=== PATIENT | male | born 1970 | race Caucasian/White ===

== ENCOUNTER → 2019-03-09 08:44 | Outpatient (CLI) | payer OTHER, SELFPAY ==
--- NOTE | 2019-03-09 | DI.ECHO.S_ITS ---
[facility] +---------+ [facility] +---------+ : : [address] : [place] : : : : [id number] : : : : Phone: [phone] +---------+ Echocardiogram Report + + :Name: XENIA OSORIO Study Date: 03/09/2019 Height: 69 in : :[facility] Weight: 186 lb : : Gender: Male BSA: 2.0 m2 : :: 1970 Age: 48 yrs BP: 120/79 mmHg: :Reason For Study: PALPITATIONS : : Performed By: Haris Antonio : :Referring: YANA ANDERSON : + + Interpretation Summary The left ventricle is normal in size. Left ventricular systolic function is normal without focal wall motion abnormalities. The ejection fraction is estimated to be 60-65%. Diastolic parameters suggest probable normal left ventricular diastolic function and normal filling pressures. The right ventricle is normal in size and function. Pulmonary artery pressures cannot be estimated because of the lack of a measurable TR jet velocity. Both atria are normal in size. There is no significant valvular heart disease. The aortic root is normal size. Procedure: A two-dimensional transthoracic echocardiogram with color flow and Doppler was performed. The study quality was technically good. There is no prior echocardiogram noted for this patient. The patient was in normal sinus rhythm during the exam. The patient had occasional PACs during the exam. Left Ventricle: The left ventricle is normal in size. There is normal left ventricular wall thickness. Left ventricular systolic function is normal without focal wall motion abnormalities. The ejection fraction is estimated to be 60-65%. Diastolic parameters suggest probable normal left ventricular diastolic function and normal filling pressures. Right Ventricle: The right ventricle is normal in size and function. Atria: Both atria are normal in size. The interatrial septum is intact with no evidence for an atrial septal defect. Mitral Valve: The mitral valve is normal in structure and function. There is no mitral regurgitation noted. Aortic Valve: The aortic valve is trileaflet. The aortic valve opens well. No aortic regurgitation is present. Tricuspid Valve: The tricuspid valve is normal in structure and function. No tricuspid regurgitation. Pulmonary artery pressures cannot be estimated because of the lack of a measurable TR jet velocity. Pulmonic Valve: The pulmonic valve is normal in structure and function. There is trace pulmonic regurgitation. There is no significant valvular heart disease. Great Vessels: The aortic root is normal size. The dimensions of the ascending aorta are normal. The pulmonary artery is normal size. The IVC is of normal diameter and collapses greater than 50% with a sniff. This suggests a low right atrial pressure of 3 mm Hg. Pericardium/ Pleura There is no pericardial effusion. There is no pleural effusion. MMode/2D Measurements & Calculations LVIDd: 4.6 cm LVOT diam: 2.2 cm LVIDs: 3.1 cm Ao root diam: 3.1 cm FS: 32.0 % Aortic Jxn: 2.5 cm EPSS: 0.59 cm asc Aorta Diam: 2.7 cm IVSd: 0.83 cm Ao Arch Diam (Prox Trans): 2.5 cm LVPWd: 1.0 cm LV thompson. diameter/BSA (cm/m^2): 2.3 LV sys. diameter/BSA (cm/m^2): 1.6 LA dimension: 3.5 cm RA long axis: 4.5 cm LA A2 area: 19.0 cm2 RA area: 12.9 cm2 LA A4 area: 19.4 cm2 RA vol: 31.3 ml LA length (vol): 6.2 cm RA : 15.6 ml/m2 LA vol: 50.5 ml IVC diam: 1.2 cm LA vol index: 25.2 ml/m2 Doppler Measurements & Calculations Ao V2 max: 158.2 cm/sec LVOT Max Anthony: 128.6 cm/sec Ao V2 mean: 117.2 cm/sec LV V1 max P.6 mmHg Ao max P.0 mmHg LV V1 VTI: 26.2 cm Ao mean P.9 mmHg JAYSON(I,D): 3.2 cm2 Ao V2 VTI: 30.6 cm JAYSON(V,D): 3.0 cm2 sev ratio: 0.86 JAYSON indexed to BSA (cm^2/m^2): 1.6 MV E max anthony: 92.7 cm/sec PA V2 max: 97.7 cm/sec MV A max anthony: 92.7 cm/sec PA V2 mean: 70.9 cm/sec MV E/A: 1.0 PA mean P.2 mmHg Med Peak E' Anthony: 7.9 cm/sec PA pr(Accel): 51.6 mmHg E/E' med: 11.7 PA Accel Time: 0.06 sec Lat Peak E' Anthony: 12.8 cm/sec E/E' lat: 7.2 E/e' average: 9.5 MV dec time: 0.19 sec SV(LVOT): 96.8 ml Reading Physician:07:58 PM
== END ==
PROVIDERS: Visit Provider Physician Assistant
DX: R00.2 Palpitations (principal)
CPT/HCPCS: 93306